=== PATIENT | female | born 1945 | race Caucasian/White ===

== ENCOUNTER 2019-01-11 07:19 | Inpatient (IN) | payer MEDICARE, OTHER ==
[~2019-01-11] VITALS: Ht 157.5 cm; Wt 66.1 kg
[~2019-01-11 07:19] MED LIST: FISH OIL; FURO20; HYDR10; LEVSOD150 PO; LEVSOD75; MULTI VITAMIN1 EACH; TRADJENTA5 MG PO
[2019-01-11 07:52] LABS: BASOPHILS ABSOLUTE AUTO 0.03 K/mm3 (0.00-0.23); BASOPHILS PERCENT AUTO 0 % (0-2); EOSINOPHILS ABSOLUTE AUTO 0.03 K/mm3 (0.00-0.68); EOSINOPHILS PERCENT AUTO 0 % (0-6); Hematocrit 33.1 % (33.0-51.0); Hemoglobin 10.5 g/dL (11.5-16.0); IMMATURE GRAN ABSOLUTE AUTO 0.05 K/mm3 (0.00-0.10); IMMATURE GRAN PERCENT AUTO 1 % (0-1); LYMPHOCYTES ABSOLUTE AUTO 1.18 K/mm3 (0.84-5.20); LYMPHOCYTES PERCENT AUTO 11 % (21-46); MONOCYTES ABSOLUTE AUTO 0.78 K/mm3 (0.16-1.47); MONOCYTES PERCENT AUTO 7 % (4-13); Mean Corpuscular HGB 30.6 pg (26.0-34.0); Mean Corpuscular HGB Conc 31.7 g/dL (31.5-36.5); Mean Corpuscular Volume 97 fL (80-100); Mean Platelet Volume 10.1 fL (9.1-12.4); NEUTROPHILS ABSOLUTE AUTO 8.79 K/mm3 (1.96-9.15); NEUTROPHILS PERCENT AUTO 81 % (41-73); Platelet Count 285 K/mm3 (150-400); RDW Coefficient Variation 14.4 % (11.7-14.2); RDW Standard Deviation 50.9 fL (35.1-46.3); Red Blood Cell Count 3.43 M/mm3 (3.80-5.20); White Blood Cell Count 10.86 K/mm3 (4.00-11.30)
[2019-01-11] MEDS ORDERED: METF500 PO (07:55)
[2019-01-11] MEDS ORDERED: LISINOP PO (07:55)
[2019-01-11] MEDS ORDERED: LEVSOD125 PO (07:55)
[2019-01-11] MEDS ORDERED: AZAT50 PO (07:55)
[2019-01-11] MEDS ORDERED: HCTZ PO (07:55)
[2019-01-11 08:18] LABS: Albumin, Blood 3.7 g/dL (3.4-5.0); Albumin/Globulin Ratio 0.7 (0.8-1.8); Bilirubin, Total 0.3 mg/dL (0.1-1.0); Bun/Creatinine Ratio 48.1 (12.0-20.0); Creatinine, Blood 0.98 mg/dL (0.40-1.00); Globulin, Blood 5.3 g/dL (2.2-4.0); Potassium, Blood 4.3 mmol/L (3.5-5.5)
[2019-01-11 08:28] LABS: Troponin I 8.03 ng/mL (0.000-0.040)
[2019-01-11 10:24] LABS: Prothrombin Time Results 10.6 Sec (9.7-11.5)
[2019-01-11] MEDS ORDERED: Vitamin D2000 UNIT PO (12:40)
[2019-01-11] MEDS ORDERED: ASPI325EC PO (12:40)
[2019-01-11] MEDS ORDERED: Cranberry300 MG PO (12:40)
--- NOTE | 2019-01-11 13:00 | NUR ---
ADMITTED TO PCU, ROOM 14, VIA BED FROM [facility] (WENT FROM [facility] DIRECTLY TO HEART CENTER FOR ANGIOGRAM). TR BAND TO R WRIST INTACT; CUFF INFLATED WITH 9CC OF AIR; ARMBOARD IN PLACE TO PREVENT USE OF WRIST/HAND. PATIENT ORIENTED TO ROOM AND PROTOCOLS; CALL LIGHT GIVEN AND EXPLAINED TO PATIENT. MONITOR NSR WITHOUT NOTED ECTOPY. TO BE TRANSFERRED TO [facility] (COBRA TRANSFER) FOR CORONARY BYPASS SURGERY; TOO MUCH BLOCKAGE FOR STENTS OR ANGIOPLASTY. SEE CARDIOLOGY NOTES/CONSULT FOR SPECIFICS.
--- NOTE | 2019-01-11 13:15 | NUR ---
VSS AND R WRIST/TR BAND SITE INTACT.
--- NOTE | 2019-01-11 13:30 | NUR ---
NO CHANGE TO R WRIST; GOOD PULSES TO ALL EXTREMITIES; NO S/SX'S OF HEMATOMA.
--- NOTE | 2019-01-11 14:35 | NUR ---
REPORT CALLED TO [facility] AT [facility]; (PHONE #[phone]); TO GO TO ROOM 4428.
--- NOTE | 2019-01-11 15:05 | NUR ---
TRANSFERRED TO [facility]IA [facility]; OXYGEN AT 1L/MIN VIA NC. IV OF NS INFUSING AT GRAVITY FLOW. COPIES OF CHART/DISCS' WITH PARAMEDICS. PATIENT TAKING HER PURSE, PHONE AND GLASSES WITH HER; FRIENDS TAKING PATIENTS' CLOTHES HOME AND WILL BE CARING FOR PATIENTS' DOG.
== END 2019-01-11 15:09 | disposition short-term general hospital (02) | DRG 281 ==
LOC: ER 07:19 → PCU 10:33
PROVIDERS: Pharmacist; Physician Assistant; ADMIT Internal Medicine
PROC: 4A023N7 Measurement of Cardiac Sampling and Pressure, Left Heart, Percutaneous Approach (ICD-10-PCS; principal; 2019-01-11)
PROC: B211YZZ Fluoroscopy of Multiple Coronary Arteries using Other Contrast (ICD-10-PCS; 2019-01-11)
DX: I21.4 Non-ST elevation (NSTEMI) myocardial infarction (principal); I50.30 Unspecified diastolic (congestive) heart failure; I11.0 Hypertensive heart disease with heart failure; I25.10 Atherosclerotic heart disease of native coronary artery without angina pectoris; E78.5 Hyperlipidemia, unspecified; E03.9 Hypothyroidism, unspecified; K75.4 Autoimmune hepatitis; E11.9 Type 2 diabetes mellitus without complications
CPT/HCPCS: 36415; 71260; 80053; 83036; 83880; 84443; 84484; 85025; 85610; 85730; 93005; 93010; 93306; 93458; 96365-59; 96366; 96375-59; 96376; 99152; 99153; 99285-25; C1769; C1894; J1644; J1940; J2250; J3010; J7030; J7500; Q9967